=== PATIENT | male | born 1975 | race African-American/Black ===

== ENCOUNTER 2019-01-21 17:23 | Observation (INO) | payer OTHER ==
[2019-01-21] MEDS ORDERED: methylPREDNISolone SOD SUCCI 125 MG/2 ML VIAL IV STA (18:11)
[2019-01-21] MEDS ORDERED: SODIUM CHLORIDE 0.9% 1,000 ML IV STA (18:11)
[2019-01-21] MEDS ORDERED: FAMOTIDINE 20 MG/2 ML VIAL IV STA (18:11)
[2019-01-21] MEDS ORDERED: diphenhydrAMINE 50 MG/ML 1 ML VIAL IVP STA (18:11)
[2019-01-21] MEDS ORDERED: ACETAMINOPHEN TAB 500 MG TAB PO STA (18:12)
[2019-01-21 18:28] LABS: Anisocytosis Slight; Basophils % (A) 1 %; Eosinophils # (A) 0.3 k/uL (0-0.7); Eosinophils % (A) 5 %; HCT 39.4 % (39.0-53.0); Hypochromasia Moderate; Lymphocytes # (A) 1.8 k/uL (1.0-4.8); Lymphocytes % (A) 32 %; MCH 26.1 pg (25.0-35.0); MCHC 30.4 g/dL (31.0-37.0); Mean Platelet Volume 6.6; Monocytes # (A) 0.3 k/uL (0-1.0); Monocytes % (A) 6 %; Neutrophils # (A) 3.1 k/uL (1.3-7.7); Neutrophils % (A) 54 %; Platelet Count 212 k/uL (150-450); RBC 4.58 m/uL (4.30-5.90); RDW 17.6 % (11.5-15.5); WBC 5.7 k/uL (3.8-10.6)
[2019-01-21] MEDS: SODIUM CHLORIDE 0.9% 1,000 ML IV SCH ×4 (18:33→23:53)
[2019-01-21 18:35] LABS: Calcium 9.5 mg/dL (8.4-10.2); Potassium 4.6 mmol/L (3.5-5.1)
[2019-01-21] MEDS ORDERED: hydrALAZINE HCL 20 MG/ML 1 ML VIAL IVP STA (18:51)
--- NOTE | 2019-01-21 18:52 | ED ---
General Adult HPI - General Chief complaint: Headache Stated complaint: lip swelling, sent from [place] Time Seen by Provider: 01/21/19 17:47 Source: patient, RN notes reviewed, old records reviewed Mode of arrival: ambulatory Limitations: no limitations - History of Present Illness Initial comments: Patient is a 43-year-old male presents for his from today from [place]. He therefore alcohol abuse. Was recently restarted on his blood pressure medication lisinopril. He started this on Sunday. Today he developed significant lip swelling. Patient states that he's had no new food exposures. No history of ALLERGIES. Patient denies any dental pain or abscessed teeth. Patient states that he has a difficulty breathing at this time. He denies tongue swelling. - Related Data Home Medications Medication Instructions Recorded Confirmed Acetaminophen Tab [Tylenol Tab] 650 mg PO Q4H PRN 01/21/19 01/21/19 Calcium/Magnesium 2 tab PO TID 01/21/19 01/21/19 Chlorpheniramine Maleate 4 mg PO Q4H PRN 01/21/19 01/21/19 [Chlor-Trimeton] Ibuprofen [Motrin] 600 mg PO Q6H PRN 01/21/19 01/21/19 LORazepam [Ativan] 1 - 2 mg PO Q4H PRN 01/21/19 01/21/19 Lisinopril [Zestril] 10 mg PO DAILY 01/21/19 01/21/19 Multivitamins, Thera [Multivitamin 1 tab PO DAILY 01/21/19 01/21/19 (formulary)] Naproxen 500 mg PO BID PRN 01/21/19 01/21/19 Ranitidine HCl [Zantac] 300 mg PO ONCE 01/21/19 01/21/19 Thiamine [Vitamin B-1] 100 mg PO DAILY 01/21/19 01/21/19 cloNIDine HCL [Catapres] 0.1 - 0.3 mg PO Q4H PRN 01/21/19 01/21/19 diphenhydrAMINE [Benadryl] 50 mg PO ONCE 01/21/19 01/21/19 traZODone HCL 50 - 150 mg PO HS 01/21/19 01/21/19 Allergies Allergy/AdvReac Type Severity Reaction Status Date / Time No Known Allergies Allergy Verified 01/21/19 18:21 Review of Systems ROS Statement: Those systems with pertinent positive or pertinent negative responses have been documented in the HPI. ROS Other: All systems not noted in ROS Statement are negative. Past Medical History Past Medical History: Hypertension History of Any Multi-Drug Resistant Organisms: None Reported Past Surgical History: No Surgical Hx Reported Past Psychological History: No Psychological Hx Reported Smoking Status: Current every day smoker Past Alcohol Use History: None Reported Past Drug Use History: None Reported General Exam - General Exam Comments Initial Comments: Pleasant 43-year-old male. Alert and oriented 3. No distress. Limitations: no limitations General appearance: alert, in no apparent distress Head exam: Present: atraumatic, normocephalic, normal inspection Eye exam: Present: normal appearance ENT exam: Present: normal exam, mucous membranes moist, other (Patient has significant lower lip edema.) Neck exam: Present: normal inspection. Absent: tenderness, meningismus, lymp hadenopathy Respiratory exam: Present: normal lung sounds bilaterally. Absent: respiratory distress, wheezes, rales, rhonchi, stridor Cardiovascular Exam: Present: regular rate, normal rhythm, normal heart sounds. Absent: systolic murmur, diastolic murmur, rubs, gallop, clicks GI/Abdominal exam: Present: soft, normal bowel sounds. Absent: distended, tenderness, guarding, rebound, rigid Extremities exam: Present: normal inspection, full ROM, normal capillary refill. Absent: tenderness, pedal edema, joint swelling, calf tenderness Back exam: Present: normal inspection Neurological exam: Present: alert, oriented X3, CN II-XII intact Psychiatric exam: Present: normal affect, normal mood Skin exam: Present: warm, dry, intact, normal color. Absent: rash Course Vital Signs 01/21/19 01/21/19 01/21/19 17:29 18:48 19:00 Temperature 98.3 F Pulse Rate 94 84 Respiratory 18 18 Rate Blood Pressure 174/117 166/116 O2 Sat by Pulse 99 100 100 Oximetry Medical Decision Making - Medical Decision Making 43-year-old male presents emergency department today for complaint of lip swelling. Patient has known new exposures or history of ALLERGIES. Concern for angioedema related to recently restarting his lisinopril blood pressure medication. [facility] At this time patient's labwork was unremarkable. He is given Solu-Medrol Benadryl and Pepcid. He has no improvement of his lip swelling. Is no tongue swelling is time. At this time with a concern for angioedema with like to monitor the Patient with repeat steroids, Benadryl. Patient agrees to admission. - Lab Data Result diagrams: 01/21/19 18:15 01/21/19 18:15 Lab Results 01/21/19 01/21/19 Range/Units 18:15 18:15 WBC 5.7 (3.8-10.6) k/uL RBC 4.58 (4.30-5.90) m/uL Hgb 12.0 L (13.0-17.5) gm/dL Hct 39.4 (39.0-53.0) % MCV 86.0 (80.0-100.0) fL MCH 26.1 (25.0-35.0) pg MCHC 30.4 L (31.0-37.0) g/dL RDW 17.6 H (11.5-15.5) % Plt Count 212 (150-450) k/uL Neutrophils % 54 % Lymphocytes % 32 % Monocytes % 6 % Eosinophils % 5 % Basophils % 1 % Neutrophils # 3.1 (1.3-7.7) k/uL Lymphocytes # 1.8 (1.0-4.8) k/uL Monocytes # 0.3 (0-1.0) k/uL Eosinophils # 0.3 (0-0.7) k/uL Basophils # 0.0 (0-0.2) k/uL Hypochromasia Moderate Anisocytosis Slight Sodium 141 (137-145) mmol/L Potassium 4.6 (3.5-5.1) mmol/L Chloride 108 H (98-107) mmol/L Carbon Dioxide 25 (22-30) mmol/L Anion Gap 8 mmol/L BUN 12 (9-20) mg/dL Creatinine 1.22 (0.66-1.25) mg/dL Est GFR (CKD-EPI)AfAm 83 (>60 ml/min/1.73 sqM) Est GFR (CKD-EPI)NonAf 72 (>60 ml/min/1.73 sqM) Glucose 96 (74-99) mg/dL Calcium 9.5 (8.4-10.2) mg/dL Disposition Clinical Impression: Angioedema, Hypertension Disposition: ADMITTED IP TO THIS HOSP Condition: Stable Is patient prescribed a controlled substance at d/c from ED?: No Referrals: None,Stated [Primary Care Provider] - 1-2 days Time of Disposition: 19:59
[2019-01-21] MEDS ORDERED: NALOXONE 0.4 MG/ML 1 ML VIAL IV PRN (19:59)
[2019-01-21] MEDS ORDERED: IBUPROFEN 400 MG TAB PO PRN (19:59)
[2019-01-21] MEDS ORDERED: ACETAMINOPHEN TAB 325 MG TAB PO PRN (19:59)
[2019-01-21] MEDS ORDERED: KETOROLAC 30 MG/ML 1 ML VIAL IVP PRN (19:59)
[2019-01-21] MEDS ORDERED: oxyCODONE-APAP 5-325MG 1 EACH TAB PO PRN (19:59)
[2019-01-21] MEDS ORDERED: LABETALOL SYRINGE 5 MG/ML IVP STA (21:03)
[2019-01-21 23:36] VITALS: BMI 33.1
[2019-01-21] MEDS: diphenhydrAMINE 50 MG/ML 1 ML VIAL IVP SCH (23:49)
[2019-01-21] MEDS: methylPREDNISolone SOD SUCCI 125 MG/2 ML VIAL IV SCH (23:51)
[2019-01-22] MEDS: methylPREDNISolone SOD SUCCI 125 MG/2 ML VIAL IV SCH ×4 (05:20→23:23)
[2019-01-22] MEDS: diphenhydrAMINE 50 MG/ML 1 ML VIAL IVP SCH ×4 (05:22→23:22)
[2019-01-22] MEDS ORDERED: cloNIDine HCL 0.1 MG TAB PO STA (05:34)
[2019-01-22] MEDS ORDERED: methylPREDNISolone SOD SUCCI 125 MG/2 ML VIAL IV ONE (05:35)
[2019-01-22] MEDS: SODIUM CHLORIDE 0.9% 1,000 ML IV SCH ×3 (06:05→16:20)
--- NOTE | 2019-01-22 09:47 | HP ---
HISTORY AND PHYSICAL CHIEF COMPLAINT: Headache and limb swelling. Sent from [place] for alcohol abuse. He was recently given lisinopril for hypertension medicine started on a Sunday, even though he has taken it for many years in the past. He had significant limb swelling. No food exposure. No history of allergies. Denies any dental or teeth pain. No difficulty breathing as his tongue swelling has increased overnight, despite Solu-Medrol. HOME MEDICATIONS: Apparently takes: 1. Motrin. 2. Ativan. 3. Zestril. 4. Chlor-Trimeton. 5. Tylenol. 6. Trazodone. 7. Benadryl. 8. Catapres. 9. Zantac. 10.Vitamin B. 11.Multivitamins. ALLERGIES: Negative. 14 POINT REVIEW OF SYSTEMS: Negative except for as mentioned in HPI. PAST MEDICAL HISTORY: Hypertension. Current everyday smoker. Alcohol abuse as mentioned above. Temp 98.3, pulse is 80s to 90s, respiratory is 16 to 18, blood pressure is 160 to 170s/116 to 117, O2 99% to 100%, respiratory rate is 18 to 20. CARDIOVASCULAR: S1, S2. LUNGS: Transmitted upper airway sounds. HEMATOLOGY: Negative Homans. PSYCH: Fair mood and affect. OPHTHALMOLOGIC: Pupils equal, round, react to light and accommodation. ENT: Shows significant swelling bilateral left lip area. White count is 5.7, hemoglobin of 12. ASSESSMENT: Angioedema, hypertension, alcohol withdrawal. Consult ENT, Cardiology. IV Solu-Medrol for angioedema or JANELL inhibitors. Please see further orders. MMODL / IJN: [id number] /
[2019-01-22] MEDS: amLODIPine 10 MG TAB PO SCH (12:49)
--- NOTE | 2019-01-22 12:56 | P.CRDCN ---
History of Present Illness History of present illness: This is a pleasant 43-year-old -[place]inames[place] male past medical history significant for hypertension, chronic nicotine dependence and alcohol abuse. He denies history of coronary artery disease, dyslipidemia or diabetes mellitus. He does not follow regularly with a trial paralegal. Weakness to see him in consultation secondary to angioedema and hypertension. He states he's been prescribed lisinopril in the past however has been fairly noncompliant and intermittent with his use of the medication. On Sunday he decided to check himself into alcohol rehabilitation and he started taking his lisinopril at that time. Since he started taking the medication initially started feeling and discomfort in his mouth and around his jaw line. Last evening he noticed his lips were swollen. He denies swelling of the tongue, throat discomfort or shortness of breath. He also denies any symptoms of chest discomfort, nausea, vomiting, diaphoresis or palpitations. He states he is quite physically active regularly and denies symptoms of exertional chest pain or dyspnea. He is seen and examined resting comfortably in bed in no acute distress. He has ongoing lip swelling suggestive of angioedema. EKG reveals sinus mechanism with sinus arrhythmia no acute ST or T wave abnormalities noted. Laboratory data reviewed, WBC 5.7, hemoglobin 12, platelets 212, sodium 141, potassium 4.6, creatinine 1.22. At the time of my exam: CONSTITUTIONAL: Denies fever. Denies chills. EYES: Denies blurred vision. Denies vision changes. Denies eye pain. EARS, NOSE, MOUTH & THROAT: Denies headache. Denies sore throat. Denies ear pain. Complains of lip swelling. CARDIOVASCULAR: Denies chest pain. Denies shortness of breath. Denies orthopnea. Denies PND. Denies palpitations. RESPIRATORY: Denies cough. GASTROINTESTINAL: Denies abdominal pain. Denies diarrhea. Denies constipation. Denies nausea. Denies vomiting. MUSCULOSKELETAL: Denies myalgias. INTEGUMENTARY: Denies pruitis. Denies rash. NEUROLOGIC: Denies numbness. Denies tingling. Denies weakness. PSYCHIATRIC: Denies anxiety. Denies depression. ENDOCRINE: Denies fatigue. Denies weight change. Denies polydipsia. Denies polyurina. GENITOURINARY: Denies burning, hematuria or urgency with micturation. HEMATOLOGIC: Denies history of anemia. Denies bleeding. Blood pressure is 163/102 heart rate 77 afebrile maintaining oxygen saturation on room air GENERAL: This is a 43-year-old male in no apparent distress at the time of my examination. HEENT: Head is atraumatic, normocephalic. Pupils are equal, round. Sclerae anicteric. Conjunctivae are clear. Mucous membranes of the mouth are moist. Neck is supple. There is no jugular venous distention. No carotid bruit is heard. LUNGS: Clear to auscultation no wheezes, rales or rhonchi. No chest wall tenderness is noted on palpation or with deep breathing. HEART: Regular rate and rhythm with S4 gallop, no murmurs or rub. S1 and S2 heard. ABDOMEN: Soft, nontender. Bowel sounds are heard. No organomegaly noted. EXTREMITIES: No evidence of peripheral edema and no calf tenderness noted. VASCULAR: Radial and dorsalis pedis pulses palpated, no evidence of clubbing. NEUROLOGIC: Patient is awake, alert and oriented x3. ASSESSMENT Acute angioedema related to lisinopril intake Hypertension, emergency Chronic nicotine dependence Alcohol abuse, currently at inpatient rehab PLAN Clinically stable with a protected airway. Continue steroids. Obtain 2D echocardiogram and doppler study to assess cardiac structure and function. S4 gallop heart on exam. Initiate on amlodipine 10 mg daily and hydrochlorothiazide 25 mg daily. Further recommendations to follow based on clinical course. Smoking cessation recommended as well as ongoing alcohol cessation. Thank you kindly for this consultation. Nurse Practitioner note has been reviewed, I agree with a documented findings and plan of care. Patient was seen and examined. Past Medical History Past Medical History: Hypertension Additional Past Medical History / Comment(s): Last drink Thursday January 17, 2019. Used to drink a 5th a day. History of Any Multi-Drug Resistant Organisms: None Reported Past Surgical History: No Surgical Hx Reported Past Anesthesia/Blood Transfusion Reactions: No Reported Reaction Past Psychological History: No Psychological Hx Reported Additional Psychological History / Comment(s): Pt. lives with . Was drinking a fifth a day. Stopped drinking on Sunday01-18-19. Checked into [place] 01-18-19. Smoking Status: Current every day smoker Past Alcohol Use History: None Reported Past Drug Use History: None Reported - Past Family History Mother Family Medical History: Diabetes Mellitus, Hypertension Additional Family Medical History / Comment(s): Drugs/alcohol. Still living. "Got rid of high BP by going to the gym". Medications and Allergies Home Medications Medication Instructions Recorded Confirmed Type Acetaminophen Tab [Tylenol Tab] 650 mg PO Q4H PRN 01/21/19 01/21/19 History Calcium/Magnesium 2 tab PO TID 01/21/19 01/21/19 History Chlorpheniramine Maleate 4 mg PO Q4H PRN 01/21/19 01/21/19 History [Chlor-Trimeton] Ibuprofen [Motrin] 600 mg PO Q6H PRN 01/21/19 01/21/19 History LORazepam [Ativan] 1 - 2 mg PO Q4H PRN 01/21/19 01/21/19 History Lisinopril [Zestril] 10 mg PO DAILY 01/21/19 01/21/19 History Multivitamins, Thera [Multivitamin 1 tab PO DAILY 01/21/19 01/21/19 History (formulary)] Naproxen 500 mg PO BID PRN 01/21/19 01/21/19 History Ranitidine HCl [Zantac] 300 mg PO ONCE 01/21/19 01/21/19 History Thiamine [Vitamin B-1] 100 mg PO DAILY 01/21/19 01/21/19 History cloNIDine HCL [Catapres] 0.1 - 0.3 mg PO Q4H PRN 01/21/19 01/21/19 History diphenhydrAMINE [Benadryl] 50 mg PO ONCE 01/21/19 01/21/19 History traZODone HCL 50 - 150 mg PO HS 01/21/19 01/21/19 History Allergies Allergy/AdvReac Type Severity Reaction Status Date / Time lisinopril AdvReac Swelling Verified 01/22/19 12:12 Physical Exam Vitals: Vital Signs Temp Pulse Pulse Resp BP BP Pulse Ox 01/22/19 07:30 18 01/22/19 07:27 77 18 163/102 100 01/22/19 05:29 94 16 173/115 99 01/21/19 22:27 90 18 159/111 100 01/21/19 21:30 83 18 159/98 99 01/21/19 20:38 88 18 173/109 100 01/21/19 19:00 84 18 166/116 100 01/21/19 18:48 100 01/21/19 17:29 98.3 F 94 18 174/117 99 Intake and Output 01/21/19 01/22/19 01/22/19 22:59 06:59 14:59 Other: Voiding Method Toilet Toilet # Voids 2 2 Weight 98.883 kg Results 01/21/19 18:15 01/21/19 18:15 CBC 01/21/19 Range/Units 18:15 WBC 5.7 (3.8-10.6) k/uL RBC 4.58 (4.30-5.90) m/uL Hgb 12.0 L (13.0-17.5) gm/dL Hct 39.4 (39.0-53.0) % Plt Count 212 (150-450) k/uL Comprehensive Metabolic Panel 01/21/19 Range/Units 18:15 Sodium 141 (137-145) mmol/L Potassium 4.6 (3.5-5.1) mmol/L Chloride 108 H (98-107) mmol/L Carbon Dioxide 25 (22-30) mmol/L BUN 12 (9-20) mg/dL Creatinine 1.22 (0.66-1.25) mg/dL Glucose 96 (74-99) mg/dL Calcium 9.5 (8.4-10.2) mg/dL Current Medications Generic Name Dose Route Start Last Admin Trade Name Freq PRN Reason Stop Dose Admin Acetaminophen 650 mg 01/21/19 19:59 Tylenol Tab PO Q6HR PRN Mild Pain or Fever > 100.5 Amlodipine Besylate 10 mg 01/22/19 12:45 Norvasc PO DAILY NAVEED Diphenhydramine HCl 25 mg 01/22/19 00:00 01/22/19 12:37 Benadryl IVP 25 mg Q6HR NAVEED Administration Hydrochlorothiazide 25 mg 01/22/19 12:45 Hydrodiuril PO DAILY NAVEED Sodium Chloride 1,000 mls @ 100 mls/hr 01/21/19 18:15 01/21/19 23:53 Saline 0.9% IV Not Given .Q10H NAVEED Sodium Chloride 1,000 mls @ 100 mls/hr 01/21/19 20:00 01/22/19 06:05 Saline 0.9% IV 100 mls/hr .Q10H NAVEED Administration Ibuprofen 400 mg 01/21/19 19:59 Motrin PO Q6HR PRN Mild Pain or Fever > 100.5 Ketorolac Tromethamine 30 mg 01/21/19 19:59 01/22/19 05:23 Toradol IVP 01/26/19 20:00 30 mg Q6HR PRN Administration Moderate Pain Methylprednisolone Sodium Succinate 60 mg 01/22/19 00:00 01/22/19 12:37 Solu-Medrol IV 60 mg Q6HR NAVEED Administration Naloxone HCl 0.2 mg 01/21/19 19:59 Narcan IV Q2M PRN Opioid Reversal Oxycodone/Acetaminophen 1 each 01/21/19 19:59 Percocet 5-325 PO Q4HR PRN Severe Pain Intake and Output 01/21/19 01/22/19 01/22/19 22:59 06:59 14:59 Other: Voiding Method Toilet Toilet # Voids 2 2 Weight 98.883 kg 01/21/19 18:15 01/21/19 18:15
[2019-01-22] MEDS: HYDROCHLOROTHIAZIDE 25 MG TAB PO SCH (14:27)
--- NOTE | 2019-01-22 14:32 | ECHOF ---
Referral Reason:hypertension with S4 MEASUREMENTS -------- HEIGHT: 172.7 cm WEIGHT: 98.9 kg BP: 163/102 RVIDd: 3.4 cm (< 3.3) IVSd: 1.4 cm (0.6 - 1.1) LVIDd: 4.9 cm (3.9 - 5.3) LVPWd: 1.5 cm (0.6 - 1.1) IVSs: 1.5 cm LVIDs: 4.1 cm LVPWs: 2.2 cm LA Diam: 3.5 cm (2.7 - 3.8) LAESV Index (A-L): 32.98 ml/m Ao Diam: 3.7 cm (2.0 - 3.7) AV Cusp: 2.4 cm (1.5 - 2.6) EPSS: 0.7 cm MV E Jordy: 1.31 m/s MV DecT: 119 ms MV A Jordy: 0.43 m/s MV E/A Ratio: 3.07 MV EF SLOPE: 109.70 mm/s (70 - 150) MV EXCURSION: 2.31 cm (> 18.000) FINDINGS -------- Sinus rhythm. This was a technically adequate study. The left ventricular size is normal. There is moderate concentric left ventricular hypertrophy. O verall left ventricular systolic function is low-normal with, an EF between 50 - 55 %. The right ventricle is mildly enlarged. LA is midly dilated 29-33ml/m2. The right atrium is normal in size. The aortic valve is trileaflet and appears structurally normal. The mitral valve is normal. There is trace mitral regurgitation. The peak and mean MV gradients are 16.04mmHg 5.55mmHg as measured by doppler. The tricuspid valve appears structurally normal. There is no pulmonic regurgitation present. The aortic root size is normal. Normal inferior vena cava with normal inspiratory collapse consistent with estimated right atrial pre ssure of 5 mmHg. There is no pericardial effusion. CONCLUSIONS -------- 1. Sinus rhythm. 2. This was a technically adequate study. 3. The left ventricular size is normal. 4. There is moderate concentric left ventricular hypertrophy. 5. Overall left ventricular systolic function is low-normal with, an EF between 50 - 55 %. 6. The right ventricle is mildly enlarged. 7. LA is midly dilated 29-33ml/m2. 8. The aortic valve is trileaflet and appears structurally normal. 9. The mitral valve is normal. 10. There is trace mitral regurgitation. 11. The peak and mean MV gradients are 16.04mmHg 5.55mmHg as measured by doppler. 12. The tricuspid valve appears structurally normal. 13. There is no pulmonic regurgitation present. 14. The aortic root size is normal. 15. Normal inferior vena cava with normal inspiratory collapse consistent with estimated right atrial pressure of 5 mmHg. 16. There is no pericardial effusion. CULLED FRUIT PACKER: JORGE Sanchez
[2019-01-23] MEDS: SODIUM CHLORIDE 0.9% 1,000 ML IV SCH ×2 (03:25→12:24)
[2019-01-23 05:17] VITALS: TEMP 98.1
[2019-01-23] MEDS: diphenhydrAMINE 50 MG/ML 1 ML VIAL IVP SCH ×2 (05:47→12:24)
[2019-01-23] MEDS: methylPREDNISolone SOD SUCCI 125 MG/2 ML VIAL IV SCH ×2 (05:48→12:25)
[2019-01-23] MEDS: HYDROCHLOROTHIAZIDE 25 MG TAB PO SCH (07:50)
[2019-01-23] MEDS: amLODIPine 10 MG TAB PO SCH (07:50)
[2019-01-23] MEDS ORDERED: CARVEDILOL 3.125 MG TAB PO SCH (08:45)
[2019-01-23] MEDS ORDERED: hydrALAZINE HCL 25 MG TAB PO SCH (09:30)
--- NOTE | 2019-01-23 11:29 | PN ---
PROGRESS NOTE Mr. Churchill is a 43-year-old male who presented with angioedema related to Lisinopril. He is feeling better today. Swelling of his lips has resolved. His breathing is stable. He denying any chest pain. No dizziness. He is ambulating without difficulty. His blood pressure remains elevated. He continues to be on Coreg 3.125 mg twice a day, amlodipine 10 mg daily, hydrochlorothiazide 25 mg daily. PHYSICAL EXAMINATION: Blood pressure 160/119 with the heart rate in the 90s. LUNGS: Clear. HEART: Regular rate and rhythm. S1, S2. No S3. No rub with a S4. ABDOMEN: Soft, nontender. EXTREMITIES: No edema. Echocardiogram performed revealed ejection fraction 50% to 55%. IMPRESSION: 1. Angioedema from JANELL inhibitor, resolved. 2. Hypertension, remains elevated. 3. History of chronic tobacco use. 4. Chronic alcohol intake. RECOMMENDATION: I will increase the dose of his carvedilol to 6.25 mg twice a day and add hydralazine to his regimen. Will increase his level of activity. Depending on the for range of his blood pressure, he may be able to be discharged home soon and follow his blood pressure as an outpatient. MMODL / IJN: [id number] /
[2019-01-23 12:23] VITALS: RESP 16
[2019-01-23 13:28] VITALS: BP 158/98; PULSE 96
[2019-01-23] MEDS ORDERED: CARVEDILOL 6.25 MG TAB PO SCH (17:30)
--- NOTE | 2019-01-31 11:47 | DS ---
DISCHARGE SUMMARY DATE OF ADMISSION: 01/21/2019 DATE OF DISCHARGE: 01/23/2019 DISCHARGE MEDICATIONS: 1. Trazodone 50 q.h.s. 2. Catapres 0.1 to 0.3 mg q.4 hours p.r.n. 3. Benadryl 50 mg daily. 4. Zestril 10 mg daily. 5. Hydralazine 25 t.i.d. 6. Coreg 6.25 b.i.d. 7. Hydrochlorothiazide 25 daily. 8. Amlodipine 10 mg daily. CONDITION: Stable. PROGNOSIS: Guarded. Ambulate as tolerated. HOSPITAL COURSE OF EVENTS: This is a white male who came to the hospital for chest pain. Cardiology saw the patient, did an echocardiogram. Echo showed normal ejection fraction 50% to 55%. Patient stabilized and patient set up as an outpatient, was cleared by mens locker room attendant. JOSE MIGUEL / NIURKA: [id number] /
== END 2019-01-23 15:40 | disposition short-term general hospital (02) ==
LOC: EC 17:23 → 3NMEDONC 19:34 → OBSVTOIN 01-23 08:57 → INTOOBSV 01-23 08:57 → UNDODISIN 01-23 15:40
PROVIDERS: ADMIT Family Medicine; ATTEND Family Medicine
DX: T78.3XXA Angioneurotic edema, initial encounter (principal); T46.4X5A Adverse effect of angiotensin-converting-enzyme inhibitors, initial encounter; I16.0 Hypertensive urgency; F10.239 Alcohol dependence with withdrawal, unspecified; I10 Essential (primary) hypertension; T46.4X6A Underdosing of angiotensin-converting-enzyme inhibitors, initial encounter; Z79.899 Other long term (current) drug therapy; Z91.128 Patient's intentional underdosing of medication regimen for other reason; Z82.49 Family history of ischemic heart disease and other diseases of the circulatory system; Z83.3 Family history of diabetes mellitus; F17.200 Nicotine dependence, unspecified, uncomplicated
CPT/HCPCS: 96376 ×3; 96361 ×4; 93005 ×2; 96374; 96375; 99285; 36415; 93306; 80048; 85025; G0378 ×4; J0360; J1200 ×3; J2930 ×3; J1885